=== PATIENT | female | born 1990 | race Caucasian/White ===

== ENCOUNTER 2016-12-25 22:06 | Emergency (ER) | payer OTHER ==
[~2016-12-25 22:06] MED LIST: AMBIEN10 MG PO; ESCITALOPRAM OX10 MG DOB; FLEXERIL10 M1 PO; FLEXERIL10 MG; FLEXERIL10 MG PO; IBUPROFEN800 MG PO; IMITREX; INDERAL LA60 M1 PO; INDERAL20 MG DOB; LISINOPRIL10 MG PO; NO MEDICATIONS; NORVASC PO; PRINIVIL10 MG PO; ROBAXIN500 MG PO; TRI-SPRINTEC PO; VICODIN 5/1 TAB 5/50 PO; VOLTAREN75 MG PO
[2016-12-25] MEDS ORDERED: NAPROSYN500 MG PO (22:17)
[2016-12-25] MEDS ORDERED: BIRTH CONTROL PILL PO (22:18)
[2016-12-25] MEDS ORDERED: AMITRYPTYLINE PO (22:18)
[2016-12-25] MEDS ORDERED: IMITREX PO (22:18)
[2016-12-25 23:40] LABS: URINE SOURCE CLEAN CATCH
[2016-12-25 23:42] LABS: URINE APPEARANCE CLEAR; URINE BILIRUBIN NEG (NEG); URINE BLOOD NEG (NEG); URINE COLOR YELLOW; URINE GLUCOSE NEG (NORM); URINE KETONE NEG (NEG); URINE LEUKOCYTE ESTERASE 3+ (NEG); URINE NITRATE NEG (NEG); URINE PH 7.5 (5-8); URINE PROTEIN NEG (NEG); URINE SPECIFIC GRAVITY 1.015 (1.003-1.035); URINE UROBILINOGEN 0.2 MG/DL (NORM)
[2016-12-25 23:44] LABS: MICRO INDICATED? YES
[2016-12-25 23:49] LABS: CULTURE INDICATED? YES; URINE BACTERIA NEG (NEG); URINE SQUAMOUS EPITHELIAL CELL OCCAS /[HPF]; URINE YEAST PRESENT
== END 2016-12-26 00:12 | disposition home or self-care (01) ==
LOC: SED 22:06
PROVIDERS: Emergency Medicine
DX: B37.3 Candidiasis of vulva and vagina (principal); G43.909 Migraine, unspecified, not intractable, without status migrainosus
CPT/HCPCS: 81003; 84703; 87086; 99283

== ENCOUNTER 2017-01-15 20:29 | Emergency (ER) | payer OTHER ==
[~2017-01-15] VITALS: Ht 162.6 cm; Wt 103.0 kg
--- NOTE | ~2017-01-15 | CT4 ---
[facility] A Service of [facility] RADIOLOGY TEXT RESULTS PATIENT: JUANA NUNO LOCATION: SED : 88 UNIT #: [id number] AGE: [address]: Cooper Pendleton MD SEX: F ORDER DR: [id number] [place] [id number] E MR#: [id number] Acc #: [id number] NAME: JUANA NUNO. : 1990 SEX: F STUDY DATE/TIME: 01/15/2017 22:26 UNIT: SED ROOM: STUDY DESCRIPTION: CT Abd and Pelv Wo Cont Attending Physician: Cooper Pendleton M.D. Ordering Physician: Cooper Pendleton M.D. Primary Care Physician: Aracelis Duggan M.D. MEDICAL IMAGING REPORT This report is preliminary unless electronic signature is present. EXAM CT abdomen and pelvis without contrast HISTORY Left flank pain for [address] exam was performed with one or more of the following radiation dose reduction techniques: automatic exposure control, adjustment of mA and/or kV according to patient size, and iterative reconstruction. FINDINGS CT abdomen and pelvis was performed without contrast. CT ABDOMEN: Minimal pericardial effusion measures 4 mm in thickness. The liver, gallbladder, spleen, pancreas, right kidney, and adrenal glands are normal. Small parenchymal scar in the posterior mid left kidney. Normal caliber abdominal aorta. Small umbilical hernia containing fat. No renal calculi. No ureteral dilatation. CT PELVIS: Normal appendix. No free fluid. The uterus and adnexa are unremarkable. Urinary bladder is normal. IMPRESSION 1. Negative CT abdomen and pelvis without contrast. 2. No urinary calculi or obstruction. 3. Normal appendix. Dictated by... [facility] A Service [facility] RADIOLOGY TEXT RESULTS PATIENT: JUANA NUNO LOCATION: SED : 89 UNIT #: [id number] AGE: [address]: Cooper Pendleton MD SEX: F ORDER DR: Josh Bell M.D. THIS IS AN ELECTRONICALLY VERIFIED REPORT Josh Bell M.D. at 01/16/2017 10:12 PM RODOLFO/enma TD: 01/16/2017 02:31 JOB #: [id number] MEDICAL IMAGING REPORT Page 1 of 1
[~2017-01-15 20:29] MED LIST changes: +AMITRYPTYLINE PO; +BIRTH CONTROL PILL PO; +IMITREX PO; +NAPROSYN500 MG PO
[2017-01-15 21:15] LABS: URINE SOURCE CLEAN CATCH
[2017-01-15 21:17] LABS: URINE APPEARANCE CLEAR; URINE BILIRUBIN NEG (NEG); URINE BLOOD NEG (NEG); URINE COLOR YELLOW; URINE GLUCOSE NEG (NORM); URINE KETONE NEG (NEG); URINE LEUKOCYTE ESTERASE NEG (NEG); URINE NITRATE NEG (NEG); URINE PROTEIN NEG (NEG); URINE SPECIFIC GRAVITY 1.025 (1.003-1.035); URINE UROBILINOGEN 0.2 MG/DL (NORM)
[2017-01-15 21:18] LABS: MICRO INDICATED? NO
[2017-01-15 22:19] LABS: BASOPHIL% 0.4 % (0-2.5); EOSINOPHIL# 0.1 X10e3 (0-0.7); EOSINOPHIL% 1.3 % (0.0-7.0); HEMATOCRIT 37.9 % (35.0-45.0); HEMOGLOBIN 12.7 gm/dL (12.0-16.0); LYMPHOCYTE% 56.4 % (17.0-45.0); MEAN CELL VOLUME 75.6 FL (83-96); MEAN CORPUSCULAR HEMOGLOBIN 25.3 PG (28-34); MEAN CORPUSCULAR HGB CONC 33.5 g/dL (30-36); MEAN PLATELET VOLUME 7.6 FL (6.5-11.5); MONOCYTE# 0.4 X10e3 (0-1.0); MONOCYTE% 8.3 % (3.0-12.0); NEUTROPHIL# 1.8 X10e3 (1.5-7.1); NEUTROPHIL% 33.6 % (40-75); PLATELET COUNT 230 X10e3 (140-420); RED BLOOD COUNT 5.01 X10e (3.90-5.30); RED CELL DISTRIBUTION WIDTH 15.2 % (11.0-15.5); WHITE BLOOD COUNT 5.3 X10e3 (4.0-10.5)
[2017-01-15 22:22] LABS: DIFF IND YES
[2017-01-15 22:44] LABS: ALBUMIN SERUM 4.1 g/dL (3.5-5.0); BILIRUBIN,TOTAL 0.4 mg/dL (0.2-2.0); BUN/CREATININE RATIO 17.5; CALCIUM SERUM 9.1 mg/dL (8.4-10.2); CREATININE SERUM 0.8 mg/dL (0.6-1.4); GLOM FILT RATE Estimated 101.1 mL/min (>60); POTASSIUM 3.4 mmol/L (3.5-5.1); PROTEIN TOTAL SERUM 7.6 g/dL (6.0-8.3)
[2017-01-15 23:02] LABS: ANISOCYTOSIS SL; MICROCYTOSIS SL; PLATELET ESTIMATE NORMAL (NORMAL); POIKILOCYTOSIS SL
== END 2017-01-15 23:21 | disposition home or self-care (01) ==
LOC: SED 20:29
PROVIDERS: Emergency Medicine
DX: R10.9 Unspecified abdominal pain (principal); I10 Essential (primary) hypertension; Z88.8 Allergy status to other drugs, medicaments and biological substances; Z79.899 Other long term (current) drug therapy
CPT/HCPCS: 36415; 74176; 80053; 81003; 84703; 85025; 99284